=== PATIENT | female | born 1955 | race Caucasian/White ===

== ENCOUNTER 2021-11-19 08:58 | Outpatient (CLI) | payer MEDICAID, SELFPAY | END 2021-11-19 08:59 | disposition home or self-care (01) | LOC: WOUND 08:58 | PROVIDERS: PCP Family Medicine; Visit Provider Nurse Practitioner Family | DX: T81.31XA Disruption of external operation (surgical) wound, not elsewhere classified, initial encounter (principal); I89.0 Lymphedema, not elsewhere classified; I87.2 Venous insufficiency (chronic) (peripheral); I87.331 Chronic venous hypertension (idiopathic) with ulcer and inflammation of right lower extremity; L97.812 Non-pressure chronic ulcer of other part of right lower leg with fat layer exposed | CPT/HCPCS: 11042; 87070; 99203; 99214 ==

== ENCOUNTER 2021-11-26 08:50 | Outpatient (CLI) | payer MEDICAID, SELFPAY | END 2021-11-26 08:51 | disposition home or self-care (01) | PROVIDERS: PCP Family Medicine; Visit Provider Nurse Practitioner Family | DX: T81.31XA Disruption of external operation (surgical) wound, not elsewhere classified, initial encounter (principal); I89.0 Lymphedema, not elsewhere classified; I87.2 Venous insufficiency (chronic) (peripheral) | CPT/HCPCS: 11042 ==

== ENCOUNTER 2021-12-03 08:30 | Outpatient (CLI) | payer MEDICAID, SELFPAY | END 2021-12-03 08:31 | disposition home or self-care (01) | LOC: WOUND 08:30 | PROVIDERS: PCP Family Medicine; Visit Provider Nurse Practitioner Family | DX: T81.31XA Disruption of external operation (surgical) wound, not elsewhere classified, initial encounter (principal); I89.0 Lymphedema, not elsewhere classified; I87.2 Venous insufficiency (chronic) (peripheral) | CPT/HCPCS: 11042 ==

== ENCOUNTER 2021-12-17 07:59 | Outpatient (CLI) | payer MEDICAID, SELFPAY | END 2021-12-17 08:00 | disposition home or self-care (01) | LOC: WOUND 07:59 | PROVIDERS: PCP Family Medicine; Visit Provider Nurse Practitioner Family | DX: T81.31XA Disruption of external operation (surgical) wound, not elsewhere classified, initial encounter (principal); T81.89XA Other complications of procedures, not elsewhere classified, initial encounter; I89.0 Lymphedema, not elsewhere classified; I87.2 Venous insufficiency (chronic) (peripheral) | CPT/HCPCS: 97597 ==

== ENCOUNTER 2021-12-31 07:57 | Outpatient (CLI) | payer MEDICAID, SELFPAY | END 2021-12-31 07:58 | disposition home or self-care (01) | LOC: WOUND 07:57 | PROVIDERS: PCP Family Medicine; Visit Provider Nurse Practitioner Family | DX: I89.0 Lymphedema, not elsewhere classified (principal) | CPT/HCPCS: 97597 ==

== ENCOUNTER 2022-01-14 07:58 | Outpatient (CLI) | payer MEDICAID, SELFPAY | END 2022-01-14 07:59 | disposition home or self-care (01) | LOC: WOUND 07:58 | PROVIDERS: PCP Family Medicine; Visit Provider Nurse Practitioner Family | DX: T81.31XA Disruption of external operation (surgical) wound, not elsewhere classified, initial encounter (principal); I89.0 Lymphedema, not elsewhere classified; I87.2 Venous insufficiency (chronic) (peripheral) | CPT/HCPCS: 99212 ==

== ENCOUNTER 2024-03-22 06:12 | Day surgery (SDC) | payer MEDICARE, OTHER, SELFPAY ==
[2024-03-22] VITALS (12 sets, daily range): BP systolic 114–167; BP diastolic 64–82; PULSE 48–68; RESP 12–16; TEMP 36.2–36.6; O2SAT 92–98; BMI 28.8
[2024-03-22] MEDS: SODIUM CHLORIDE 0.9 % (FLUSH) 10 ML SYRINGE IVF (06:43)
[2024-03-22] MEDS: 0.9 % SODIUM CHLORIDE 500 ML 500 ML 100 ML IV (07:36)
--- NOTE | 2024-03-22 07:39 | W.PM.H&PU ---
History & Physical Update History & Physical Update H&P Reviewed and patient assessed: No changes noted
[2024-03-22] MEDS: CEFAZOLIN 2 GM INJ IVP (07:49)
[2024-03-22] MEDS: BUPIVACAINE 0.5% 30 ML INJECTION (08:27)
--- NOTE | 2024-03-22 08:52 | W.ANESCHARGE ---
Anesthesia Charges Start Date/Time Anesthesia Start Date: 03/22/24 Anesthesia Start Time: 07:35 Stop Date/Time Anesthesia Stop Date: 03/22/24 Anesthesia Stop Time: 08:49
--- NOTE | 2024-03-22 08:55 | W.ANESCHARGE ---
Anesthesia Charges Start Date/Time Anesthesia Start Date: 03/22/24 Anesthesia Start Time: 07:35 Stop Date/Time Anesthesia Stop Date: 03/22/24 Anesthesia Stop Time: 08:49
--- NOTE | 2024-03-22 09:12 | SUR.PHASEI ---
nacl bag started running at 0736, into pacu with 50cc remaining. 30cc remaining at end of phase 1
--- NOTE | 2024-03-22 15:22 | P.GSOP_ITS ---
Operative Note Date of procedure: 03/22/24 Pre-op diagnosis: Chronic cholecystitis Post-op diagnosis: Same Type of Procedure: Laparoscopic cholecystectomy Indications: Patient is a 68-year-old female who presented with intermittent right upper quadrant abdominal pain and workup consistent with chronic cholecystitis. Please see consultation note for full discussion. Risks and benefits of operative intervention were discussed at length with the patient. Risks included but was not limited to: Bleeding, infection, risk of damage to karishma rounding structures, possible need for additional procedures, possible need to convert to an open operation and postoperative complications such as pneumonia, pulmonary emboli or PA. All questions and concerns were addressed with the patient agreeing to proceed. Procedure Description: After discussing the risks and benefits of the procedure, the patient signed informed consent.? The operative site was marked and the patient was brought to the operating room and placed on the operating table in supine position.? Care was taken to pad the patient's pressure points.?? The patient was then intubated by anesthesia.?? The operative site was then prepped and draped in the usual sterile fashion.? A time-out was then performed. Entrance to the abdomen was gained via a 5 mm Visiport in the left upper quadrant. The abdomen was insufflated and briefly surveyed for signs of injury. There was none. 11 mm umbilical port was placed as well as 2 working ports along the right costal margin. Patient was then placed in reverse Trendelenburg position with the right side up. The gallbladder fundus was grasped and retracted cephalad. A small amount of dissection was needed to free omental adhesions from the gallbladder. The infundibulum was grasped. A combination of hook cautery and blunt dissection was used to carefully dissect out the cystic duct and artery until they could clearly be seen entering the gallbladder without any intervening structures. The gallbladder was dissected off the cystic plate to achieve the critical view. Once this was achieved the cystic duct and artery were each clipped with 2 clips proximally and 1 clip distally and transected with the scissors. The gallbladder was then taken off of the liver bed. And removed from the abdomen using an Endo-Catch bag. The gallbladder bed was surveyed for hemostasis. The ports were then removed under direct vision. The umbilical port fascia was closed with 0 Vicryl. The skin was closed with absorbable subcuticular suture. Instrument sponge and needle counts were correct at the end of the case. The patient was then woken and transferred to the PACU in stable condition. Findings: Cholelithasis Anesthesia: GETA Surgeon: Debra Tejeda MD Estimated blood loss (mL): 5 Specimen: Gallbladder Condition: stable Disposition: same day
== END 2024-03-22 10:35 | disposition home or self-care (01) ==
PROVIDERS: PCP Family Medicine; Visit Provider Surgery
PROC: 0FT44ZZ Resection of Gallbladder, Percutaneous Endoscopic Approach (ICD-10-PCS; CPT 47562; principal; 2024-03-22 07:30)
DX: K80.10 Calculus of gallbladder with chronic cholecystitis without obstruction (principal); R10.11 Right upper quadrant pain
CPT/HCPCS: 47562; 00790; 88304; J0330; J0665; J0690; J1100; J1630; J2405; J2704; J2710; J3010; J7030

== ENCOUNTER 2024-06-20 09:45 | Outpatient (RCR) | payer MEDICARE, OTHER, SELFPAY | END 2024-10-18 23:59 | disposition home or self-care (01) | PROVIDERS: PCP Family Medicine; Visit Provider Family Medicine | DX: M79.645 Pain in left finger(s) (principal); G89.29 Other chronic pain; M65.4 Radial styloid tenosynovitis [de Quervain]; M18.9 Osteoarthritis of first carpometacarpal joint, unspecified; Z51.89 Encounter for other specified aftercare | CPT/HCPCS: 97035; 97110; 97140; 97165; 97530; 97535; X5282 ==